=== PATIENT | female | born 1990 | race Caucasian/White ===

== ENCOUNTER 2016-09-18 20:58 | Emergency (ER) | payer SELFPAY ==
[~2016-09-18] VITALS: Ht 172.7 cm; Wt 49.9 kg
[~2016-09-18 20:58] MED LIST: BACITRACIN15 GM TOPIC; DIPHENHYDRAMINE25 M1 ORAL; IRON159 MG PO; NKM; OFLOXACIN5 ML LEFT EYE; PREDNISONE20 MG ORAL; ZANTAC150 MG ORAL; ZITHROMAX250 MG ORAL
[2016-09-18] MEDS ORDERED: KEFLEX500 MG ORAL (21:40)
--- NOTE | 2016-09-18 21:41 | Emergency Room Report ---
History of Present Illness General Chief Complaint: Puncture Wound Source: Patient Present Illness HPI Is a 25-year-old female with no significant past issue. She presents with chief complaint of puncture wound to the right great toe. She tripped over a metal door yesterday and has a scrape on her foot. She also had a puncture wound to the toe. She was wearing an open toe shoe .denies any other complaint. She wanted to know she need a tetanus shot. Allergies: Coded Allergies: No Known Allergies (Unverified , 02/18/15) Patient History Past Medical History: see triage record, old chart reviewed Past Surgical History: other Pertinent Family History: none Social History: Denies: smoking Last Menstrual Period: a month ago Now: No Immunizations: other Reviewed Nursing Documentation: PMH: Agreed, PSxH: Agreed Nursing Documentation-PM Past Medical History: No Stated History Review of Systems Eye: Denies: blurred vision, eye pain ENT: Denies: ear pain, nose congestion, throat swelling Respiratory: Denies: cough, shortness of breath Cardiovascular: Denies: chest pain, palpitations Gastrointestinal: Denies: abdominal pain, diarrhea, nausea, vomiting Musculoskeletal: Denies: back pain, joint pain Skin: Denies: rash Neurological: Denies: headache, numbness Endocrine: Denies: increased thirst, increased urine Hematologic/Lymphatic: Denies: easy bruising All Other Systems: negative except mentioned in HPI Physical Exam Vital Signs Date Time Temp Pulse Resp B/P Pulse Ox O2 Delivery O2 Flow Rate FiO2 09/18/16 21:12 98.2 90 16 115/87 100 vitals normal Sp02 EP Interpretation: reviewed, normal General Appearance: well appearing, no apparent distress, alert Head: normocephalic, atraumatic Eyes: bilateral eye EOMI, bilateral eye PERRL ENT: hearing grossly normal, normal pharynx Neck: full range of motion, supple, no meningismus Respiratory: chest non-tender, lungs clear, normal breath sounds Cardiovascular #1: regular rate, rhythm, no murmur Gastrointestinal: normal bowel sounds, non tender, no mass, no organomegaly, no bruit, non-distended Musculoskeletal: back normal, gait/station normal, normal range of motion, other - Right great toe: healed puncture wound is underneath the nail. No active bleeding. No foreign body the Psychiatric: mood/affect normal Skin: warm/dry Medical Decision Making Diagnostic Impression: Primary Impression: Puncture wound ER Course Patient presents with a puncture wound. Tetanus was last year ready. We'll discharge home with antibiotics. Last Vital Signs Date Time Temp Pulse Resp B/P Pulse Ox O2 Delivery O2 Flow Rate FiO2 09/18/16 21:12 98.2 90 16 115/87 100 Status: improved Disposition: HOME, SELF-CARE Condition: Stable Scripts Cephalexin* (KEFLEX*) 500 Mg Capsule 500 MG ORAL TID, #21 CAP 0 Refills Prov: CARLOS ENRIQUE RILEY M.D. 09/18/16 Referrals: NOT CHOSEN [facility]/,REFERRING (PCP) Patient Instructions: Puncture Wound Additional Instructions: Followup with your Dr. in 7 days. Keep wound clean. Return it worse. Clean with hydrogen peroxide. CARLOS ENRIQUE RILEY M.D. September 18, 2016 21:41
[2016-09-18 21:51] VITALS: BP 115/87
== END 2016-09-18 21:59 | disposition home or self-care (01) ==
LOC: EMR 21:29
DX: S91.131A Puncture wound without foreign body of right great toe without damage to nail, initial encounter (principal); W22.8XXA Striking against or struck by other objects, initial encounter; Y93.9 Activity, unspecified; Y99.9 Unspecified external cause status
CPT/HCPCS: 99283

== ENCOUNTER 2016-10-24 17:00 | Emergency (ER) | payer SELFPAY ==
[~2016-10-24] VITALS: Ht 172.7 cm; Wt 49.9 kg
[~2016-10-24 17:00] MED LIST changes: +KEFLEX500 MG ORAL
[2016-10-24 17:09] VITALS: BP 142/93
[2016-10-24] MEDS ORDERED: LORazepam 0.5mg tab ORAL ONE (17:45)
[2016-10-24 17:54] LABS: APPEARANCE,URINE CLEAR; KETONES,URINE NEGATIVE (NEGATIVE); LEUKOCYTE ESTERASE ,URINE NEGATIVE (NEGATIVE); NITRITE,URINE NEGATIVE (NEGATIVE); PH,URINE 7 (4.5-8.0); PROTEIN,URINE NEGATIVE (NEGATIVE); UROBILINOGEN,URINE NORMAL MG/DL (0.0-1.0)
--- NOTE | 2016-10-24 18:07 | Emergency Room Report ---
History of Present Illness General Chief Complaint: Chest Pain Source: Patient Present Illness HPI 26-year-old female presents emergency department complaining of 6/10 in severity chest pain and also described as tightness with palpitations, and fullness in the ears since this a.m. Patient states that she smoked weed this morning and also had a cup of coffee prior to the onset of her symptoms. Patient states she has a history of anemia. Patient also states that for several weeks she has had night sweats denies fevers or chills. Patient denies or other drug use. She also reports lightheadedness. Denies nausea, vomiting constipation or diarrhea. Patient denies history of anxiety. Patient denies similar symptoms in the past. She denies cardiac history or thyroid dysfunction . Denies . pt.states she is supposed to take iron supplements however is non-compliant. Denies LOC, AMS, dizziness, Changes in Vision, Sensation, paresthesias, or a sudden severe headache. Allergies: Coded Allergies: No Known Allergies (Unverified , 02/18/15) Patient History Past Medical History: see triage record Past Surgical History: none Pertinent Family History: none Last Menstrual Period: 10/19/16 Now: No Reviewed Nursing Documentation: PMH: Agreed, PSxH: Agreed Nursing Documentation-PMH Past Medical History: No Stated History Review of Systems All Other Systems: negative except mentioned in HPI Physical Exam Vital Signs Date Time Temp Pulse Resp B/P Pulse Ox O2 Delivery O2 Flow Rate FiO2 10/24/16 17:09 98.1 130 16 142/93 98 Room Air Sp02 EP Interpretation: reviewed, abnormal - Tachycardic General Appearance: alert, GCS 15, non-toxic, mild distress, thin Head: normocephalic, atraumatic Eyes: bilateral eye PERRL, bilateral eye normal inspection ENT: hearing grossly normal, normal pharynx, no angioedema, normal voice Neck: full range of motion, other - no obvious goiter Respiratory: chest non-tender, lungs clear, normal breath sounds, speaking full sentences Cardiovascular #1: regular rate, rhythm, no edema, tachycardia Musculoskeletal: back normal, gait/station normal, normal range of motion, non- tender Neurologic: alert, oriented x3, responsive, motor strength/tone normal, sensory intact, normal gait, speech normal Psychiatric: judgement/insight normal, memory normal, mood/affect normal, anxious Skin: normal color, no rash, warm/dry, well hydrated Lymphatic: no adenopathy Medical Decision Making PA Attestation Dr. Maldonado is my supervising Physician whom patient management has been discussed with. Diagnostic Impression: Primary Impression: Tachycardia ER Course 26-year-old female presents emergency department complaining of 6/10 in severity chest pain and also described as tightness with palpitations, and fullness in the ears since this a.m. Patient states that she smoked weed this morning and also had a cup of coffee prior to the onset of her symptoms. Patient states she has a history of anemia. Patient also states that for several weeks she has had night sweats denies fevers or chills. Patient denies or other drug use. She also reports lightheadedness. Denies nausea, vomiting constipation or diarrhea. Patient denies history of anxiety. Patient denies similar symptoms in the past. She denies cardiac history or thyroid dysfunction . Denies . pt.states she is supposed to take iron supplements however is non-compliant. Denies LOC, AMS, dizziness, Changes in Vision, Sensation, paresthesias, or a sudden severe headache. Ddx considered but are not limited to SD, anemia, arrhythmia, hypokalemia, anxiety reaction. Vital signs: are WNL, pt. is afebrile H&PE are most consistent with tachycardia will assess basic labs, and THS. possible anxiety reaction will do laboratory work up and EKG. ORDERS: - EKG: Sinus tachycardia 133 bpm, non-specific ST changes per ED interpretation by Dr. Maldonado - CBC -BMP -THS -UA: unremarkable -UDS: positive for THC -Urine hcg:negative ED INTERVENTIONS: - 0.5mg Ativan ((( Pt. is driving, and cannot get a ride home will hold medication until safe ride home is confirmed) )) DISPOSITION : Pt. Eloped after EKG and Providing Urine. Pt. at first was concerned about blood draw and d/w pt. that all testing is necessary. pt. asked if she could leave and come back, d/w pt. that I recommend she stay and let us complete our ED evaluation. d/w pt. that if she leaves she needs to sign out AMA form as we can not r/o emergent condition without completing necessary testing. Pt. verbalized her understanding and eloped immediately after. Labs Test 10/24/16 17:45 Urine Color Pale yellow Urine Appearance Clear Urine pH 7 (4.5-8.0) Urine Specific [place] 1.005 (1.005-1.035) Urine Protein Negative (NEGATIVE) Urine Glucose (UA) Negative (NEGATIVE) Urine Ketones Negative (NEGATIVE) Urine Occult Blood Negative (NEGATIVE) Urine Nitrite Negative (NEGATIVE) Urine Bilirubin Negative (NEGATIVE) Urine Urobilinogen Normal MG/DL (0.0-1.0) Urine Leukocyte Esterase Negative (NEGATIVE) Urine HCG, Qualitative Negative Urine Opiates Screen Negative (NEGATIVE) Urine Barbiturates Screen Negative (NEGATIVE) Phencyclidine (PCP) Screen Negative (NEGATIVE) Urine Amphetamines Screen Negative (NEGATIVE) Urine Benzodiazepines Screen Negative (NEGATIVE) Urine Cocaine Screen Negative (NEGATIVE) Urine Marijuana (THC) Screen Positive (NEGATIVE) Last Vital Signs Date Time Temp Pulse Resp B/P Pulse Ox O2 Delivery O2 Flow Rate FiO2 10/24/16 17:09 130 16 Room Air 10/24/16 17:09 98.1 142/93 98 Disposition: ELOPED Condition: Unknown Referrals: NOT CHOSEN DEWAYNE/,REFERRING (PCP) Jennifer Miller Oct 24, 2016 18:07
[2016-10-24 18:16] VITALS: BP 0/0
[2016-10-25] MEDS ORDERED: NIACIN50 MG PO (02:10)
== END 2016-10-24 18:25 | disposition home or self-care (01) ==
LOC: EMR 17:45
DX: R00.0 Tachycardia, unspecified (principal); R07.89 Other chest pain
CPT/HCPCS: 80300; 81003; 81025; 99283

== ENCOUNTER 2016-10-25 02:05 | Emergency (ER) | payer SELFPAY ==
[~2016-10-25] VITALS: Ht 172.7 cm; Wt 49.9 kg
[2016-10-25 02:10] VITALS: BP 128/79
[2016-10-25] MEDS ORDERED: NIACIN50 MG PO (02:10)
--- NOTE | 2016-10-25 02:29 | Emergency Room Report ---
History of Present Illness General Chief Complaint: General Complaint Source: Patient Present Illness Allergies: Coded Allergies: No Known Allergies (Unverified , 02/18/15) Patient History Last Menstrual Period: 10/19/16 Now: No : 1 Para: 0 Nursing Documentation-[facility] Past Medical History: No Stated History Physical Exam Vital Signs Date Time Temp Pulse Resp B/P Pulse Ox O2 Delivery O2 Flow Rate FiO2 10/25/16 02:07 98.2 98 17 128/79 100 Room Air Medical Decision Making Diagnostic Impression: Primary Impression: Edema of hand Last Vital Signs Date Time Temp Pulse Resp B/P Pulse Ox O2 Delivery O2 Flow Rate FiO2 10/25/16 02:07 98.2 98 17 128/79 100 Room Air Status: improved Disposition: HOME, SELF-CARE Condition: Stable Additional Instructions: Follow up with your doctor in 7 days. Return if worse. CARLOS ENRIQUE RILEY M.D. Oct 25, 2016 02:29
[2016-10-25 02:30] VITALS: BP 119/71
--- NOTE | 2016-10-28 21:48 | Emergency Room Report ---
History of Present Illness General Chief Complaint: General Complaint Source: Patient Present Illness HPI This is a 26-year-old female with a history of anxiety. She presents with chief complaint of right hand swelling. Onset was tonight. She said she's been driving day today. 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 Now she noticed some swelling and bluish discoloration. She was concerned. This was she came in. No other complaint. Allergies: Coded Allergies: No Known Allergies (Unverified , 02/18/15) Patient History Past Medical History: see triage record, old chart reviewed Past Surgical History: other Pertinent Family History: none Social History: Denies: smoking Last Menstrual Period: 10/19/16 Now: No : 1 Para: 0 Immunizations: other Reviewed Nursing Documentation: PMH: Agreed, PSxH: Agreed Nursing Documentation-PMH Past Medical History: No Stated History Review of Systems Eye: Denies: blurred vision, eye pain ENT: Denies: ear pain, nose congestion, throat swelling Respiratory: Denies: cough, shortness of breath Cardiovascular: Denies: chest pain, palpitations Gastrointestinal: Denies: abdominal pain, diarrhea, nausea, vomiting Musculoskeletal: Reports: muscle pain, Denies: back pain, joint pain Skin: Denies: rash Neurological: Denies: headache, numbness Endocrine: Denies: increased thirst, increased urine Hematologic/Lymphatic: Denies: easy bruising All Other Systems: negative except mentioned in HPI Physical Exam Vital Signs Date Time Temp Pulse Resp B/P Pulse Ox O2 Delivery O2 Flow Rate FiO2 10/25/16 02:07 98.2 98 17 128/79 100 Room Air vitals normal Sp02 EP Interpretation: reviewed, normal General Appearance: well appearing, no apparent distress, alert Head: normocephalic, atraumatic Eyes: bilateral eye EOMI, bilateral eye PERRL ENT: hearing grossly normal, normal pharynx Neck: full range of motion, supple, no meningismus Respiratory: chest non-tender, lungs clear, normal breath sounds Cardiovascular #1: regular rate, rhythm, no murmur Gastrointestinal: normal bowel sounds, non tender, no mass, no organomegaly, no bruit, non-distended Musculoskeletal: back normal, gait/station normal, normal range of motion, other - Right hand: There is some mild tenderness to the hyperthenar eminence. The bluish discoloration is her veins. No trauma. Neurologic: alert, oriented x3 Psychiatric: mood/affect normal Skin: warm/dry Medical Decision Making Diagnostic Impression: Primary Impression: Edema of hand ER Course Patient with edema to her palm. This secondary to muscle strain. No fracture or dislocation. No hematoma. No trauma. No blood clot. Last Vital Signs Date Time Temp Pulse Resp B/P Pulse Ox O2 Delivery O2 Flow Rate FiO2 10/25/16 02:30 98.2 92 15 119/71 100 Room Air Status: improved Disposition: HOME, SELF-CARE Condition: Stable Referrals: NOT CHOSEN [facility]/MD,REFERRING (PCP) Patient Instructions: Edema, [id number] Additional Instructions: Follow up with your doctor in 7 days. Return if worse. CARLOS ENRIQUE RILEY M.D. Oct 28, 2016 21:48
== END 2016-10-25 02:30 | disposition home or self-care (01) ==
LOC: EMR 02:20
DX: R60.0 Localized edema (principal)
CPT/HCPCS: 99282

== ENCOUNTER 2018-11-11 07:09 | Emergency (ER) | payer SELFPAY ==
[~2018-11-11] VITALS: Ht 170.2 cm; Wt 52.2 kg
[~2018-11-11 07:09] MED LIST changes: +NIACIN50 MG PO
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
[2018-11-11] MEDS ORDERED: Augmentin 875mg Tab ORAL ONE (07:45)
[2018-11-11 08:00] VITALS: BP 136/70
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
[2018-11-11] MEDS ORDERED: AUGMENTIN 875-1 EAC1 ORAL (08:35)
[2018-11-11 08:43] VITALS: BP_SYST 125; BP_SYST 127; BP_DIAS 70; BP_DIAS 88
--- NOTE | 2018-11-11 08:43 | NUR ---
ER DISCHARGE NOTE: Patient is cleared to be discharged per ERMD, pt is aox4, on room air, with stable vital signs. pt was given dc and prescription instructions, pt was able to verbalize understanding, pt id band and removed without complications. pt is able to ambulate with steady gait. pt took all belongings.
--- NOTE | 2018-11-11 08:43 | NUR ---
Note etienneone in EDM - 11/11/18 at 0846 by NEVILLE ER DISCHARGE NOTE: Patient is cleared to be discharged per ERMD, pt is aox4, on room air, with stable vital signs. pt was given dc and prescription instructions, pt was able to verbalize understanding, pt id band removed. pt is able to ambulate with steady gait. pt took all belongings.
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
== END 2018-11-11 08:43 | disposition home or self-care (01) ==
LOC: EMR 07:36
DX: S61.452A Open bite of left hand, initial encounter (principal); Z91.040 Latex allergy status; W50.3XXA Accidental bite by another person, initial encounter; Y92.9 Unspecified place or not applicable
CPT/HCPCS: 99283